=== PATIENT | female | born 2000 | race American Indian/Alaskan Native ===

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

== ENCOUNTER 2020-08-01 18:14 | Emergency (ER) | payer MEDICAID, SELFPAY ==
[2020-08-01 18:24] VITALS: BP 155/89; PULSE 109; RESP 20; TEMP 37; O2SAT 100
--- NOTE | 2020-08-01 19:07 | ED.EXTPRO ---
HPI - Extremity Problem General Chief complaint: Extremity Problem,Nontraumatic Stated complaint: RIGHT ARM SWELLING HURTS BAD Time Seen by Provider: 08/01/20 19:07 Source: patient and family Mode of arrival: Family Vehicle Limitations: no limitations History of Present Illness HPI Narrative: 20-year-old woman seen at [facility] about a month ago for an acute allergic reaction to amitriptyline. She had an IV in the left antecubital fossa. At IV site had some irritation around it that looks like sensitivity from the dressing or Band-Aid. Over the last 3-4 days there has been increasing redness around the IV site and over the last 24 hours there is significant erythema from the upper arm to the lower forearm centered around the antecubital fossa. There is no evidence of abscess or drainage. She does not note dramatic fevers or chills. She does note that for the past 3-4 days she has had a significant amount of itching and was diagnosed with scabies for which she used permethrin cream yesterday. She denies will work nausea, vomiting, diarrhea, abdominal pain, chest pain, dyspnea, palpitations or any acute neurologic changes. Related Data Previous Rx's Medication Instructions Recorded ondansetron 4 mg PO TID-QID PRN #10 tab 03/01/19 cephalexin 500 mg PO TID #21 cap 08/01/20 Allergies Allergy/AdvReac Type Severity Reaction Status Date / Time amitriptyline Allergy Severe Rash Verified 08/01/20 19:31 Review of Systems Review of Systems ROS Unobtainable: All systems reviewed & are unremarkable except as noted in HPI and below Patient History Social History Smoking Status: Never smoker Smoking Status: Never smoker alcohol intake frequency: holidays/special occasions only Substance Use Type: marijuana Exam Narrative Exam Narrative: General: Healthy appearing, in no acute distress. Able to give a complete and coherent history. Well-nourished well-developed HEENT: Moist mucous membranes, normal sclera with reactive pupils, Neck:supple Respiratory: Lungs are clear to auscultation, no wheezing no rales no rhonchi. Full and symmetrical air movement Cardiac: Regular rate and rhythm no murmurs no bruits Abdomen: Soft, nontender, good bowel tones, no flank pain Skin: Erythematous non petechial rash over much of her body with burrowing sites between her fingers more on the right than the left consistent with scabies. She has a rectangular shaped erythematous area in the antecubital fossa suspicious for an allergic reaction to a Band-Aid with a central amount of peeling skin which would have been the puncture site for the IV. She has increasing cellulitic erythema in the left arm to include the distal 2/3 of the medial arm and the proximal 2/3 of the medial forearm. There is no fluctuance or obvious abscess Neurologic: Grossly neurologically intact with no obvious asymmetries or abnormalities. Neurovascularly intact on the left side Extremities: well perfused, large bruised left thigh approximately 3 to 4-day-old and healing Psych: Cooperative, appropriate insight and affect Initial Vital Signs Initial Vital Signs: Vital Signs Temperature 98.6 F 08/01/20 18:24 Pulse Rate 109 H 08/01/20 18:24 Respiratory Rate 20 08/01/20 18:24 Blood Pressure 155/89 H 08/01/20 18:24 Pulse Oximetry 100 08/01/20 18:24 Course Orders Ordered: ED Orders 08/01/20 19:25 Complete Blood Count AUTO DIFF Stat Comprehensive Metabolic Panel Stat Lactate (Lactic Acid) Stat 08/01/20 19:50 Blood Culture Stat Discontinued Medications Hydroxyzine Pamoate (Hydroxyzine Pamoate 25 Mg Capsule) 50 mg PO NOW ONE Stop: 08/01/20 19:49 Last Admin: 08/01/20 19:57 Dose: 50 mg Documented by: JAMI Ceftriaxone Sodium/Dextrose (Rocephin) 2 gm in 50 mls @ 100 mls/hr IV NOW ONE Stop: 08/01/20 19:51 Last Infusion: 08/01/20 20:15 Dose: 0 mls/hr Documented by: Admin: 08/01/20 19:36 Dose: 100 mls/hr Documented by: JAMI Sodium Chloride (Normal Saline 0.9%) 1,000 mls @ 1,000 mls/hr IV BOLUS ONE Stop: 08/01/20 20:21 Last Infusion: 08/01/20 21:11 Dose: 0 mls/hr Documented by: Admin: 08/01/20 19:37 Dose: 1,000 mls/hr Documented by: JAMI Ketorolac Tromethamine (Ketorolac 60 Mg/2 Ml Vial) 15 mg IV NOW ONE Stop: 08/01/20 19:49 Last Admin: 08/01/20 19:57 Dose: 15 mg Documented by: JAMI Vital Signs Vital signs: Vital Signs - 8 hr 08/01/20 18:24 Temperature 98.6 F Pulse Rate 109 H Respiratory Rate 20 Blood Pressure 155/89 H Pulse Oximetry 100 MDM - Extremity (Nontraumatic) Lab Data Result diagrams: 08/01/20 19:25 08/01/20 19:25 Labs: Lab Results 08/01/20 08/01/20 08/01/20 Range/Units 19:25 19:25 19:25 WBC 10.4 (4.5-11.0) X10^3/uL RBC 4.47 (4.0-5.2) X10^6/uL Hgb 13.6 (12.0-16.0) g/dL Hct 40.2 (36-46) % MCV 89.9 (80-100) fL MCH 30.4 (26-34) PG MCHC 33.8 (30-36) % RDW 13.1 (11.6-14.8) % Plt Count 287 (150-400) X10^3/uL Neut % (Auto) 51.8 (50-75) % Lymph % (Auto) 30.3 (25-40) % [place] % (Auto) 7.9 (3-14) % Eos % (Auto) 9.7 H (2-4) % Baso % (Auto) 0.3 (0-2) % Neut # (Auto) 5400 (5570-5325) /uL Lymph # (Auto) 3100 (5547-8922) /uL [place] # (Auto) 800 (0-900) /uL Eos # (Auto) 1000 H (0-450) /uL Baso # (Auto) 0 (0-100) /uL Sodium 138 (137-145) mmol/L Potassium 3.7 (3.4-5.1) mmol/L Chloride 105 (98-107) mmol/L Carbon Dioxide 27 (22-32) mmol/L BUN 11 (7-17) mg/dL Creatinine 0.56 (0.52-1.04) mg/dL Estimated GFR > 60.0 (>60) mL/min BUN/Creatinine Ratio 19.6 (6-22) Glucose 81 (70-100) mg/dL Lactate 0.7 (0.7-2.1) mmol/L Calcium 9.2 (8.4-10.2) mg/dL Total Bilirubin 0.3 (0.2-1.3) mg/dL AST 21 (14-36) IU/L ALT 11 (<35) IU/L Alkaline Phosphatase 55 (38-126) U/L Total Protein 6.7 (6.3-8.2) g/dL Albumin 4.2 (3.5-5.0) g/dL Globulin 2.5 (1.7-4.1) g/dL Albumin/Globulin Ratio 1.7 (1.0-2.8) MDM Narrative Medical decision making narrative: 20-year-old woman presents with redness left forearm around antecubital fossa with a history of a an IV at that side approximately a month ago. It does appear to be cellulitis with no abscess appreciated. No signs of sepsis or overwhelming infection. She is treated with ceftriaxone in the emergency department with some improvement. She will need to complete 7 additional days of Keflex and prescription is given. She was recently diagnosed with scabies and has treated herself twice with permethrin as well as cleaned all of her clothes. They were not given any additional information regarding scabies so this is printed out for them today. She is safe for home discharge Discharge Plan Departure Patient Disposition: Home Clinical Impression: Cellulitis Qualifiers: Site of cellulitis: extremity Site of cellulitis of extremity: upper extremity Laterality: left Qualified Code(s): L03.114 - Cellulitis of left upper limb Instructions: DI for Cellulitis -- Adult, DI for Scabies Activity Restrictions/Additional Instructions: Thank you for coming in today You have a cellulitis developing in the left arm. You got started on antibiotics in the emergency department and need to complete 7 more days of Keflex/cephalexin. If this seems that it is getting worse, please return to the ER. It is okay to leave the arm uncovered and you do not need to use any creams at the area in the crease of the elbow I have included some printed instructions for scabies. It sounds like you have already done all that needs to be done to treat this. Regarding the bruising on the leg, you clearly simply ran into something hard enough to leave such a bruise. You the remainder of your blood work is reassuring and you do not have any signs of anemia today. Prescriptions: New cephalexin 500 mg capsule 500 mg PO TID Qty: 21 RF: 0 No Action ondansetron 4 mg tablet,disintegrating 4 mg PO TID-QID PRN (Reason: nausea and vomiting) Qty: 10 RF: 0
[2020-08-01 19:35] LABS: Add Manual Diff / Slide Review NO; Basophils Absolute Auto 0 /uL (0-100); Basophils Percent Auto 0.3 % (0-2); Eosinophils Absolute Auto 1000 /uL (0-450); Eosinophils Percent Auto 9.7 % (2-4); Hematocrit 40.2 % (36-46); Hemoglobin 13.6 g/dL (12.0-16.0); Lymphocytes Absolute Auto 3100 /uL (1100-4500); Lymphocytes Percent Auto 30.3 % (25-40); Mean Corpuscular HGB Conc 33.8 % (30-36); Mean Corpuscular Hemoglobin 30.4 PG (26-34); Mean Corpuscular Volume 89.9 fL (80-100); Monocytes Absolute Auto 800 /uL (0-900); Monocytes Percent Auto 7.9 % (3-14); Neutrophils Absolute Auto 5400 /uL (1500-7000); Neutrophils Percent Auto 51.8 % (50-75); Platelet Count 287 X10^3/uL (150-400); Red Blood Cell Count 4.47 X10^6/uL (4.0-5.2); Red Cell Distribution Width 13.1 % (11.6-14.8); White Blood Cell Count 10.4 X10^3/uL (4.5-11.0)
[2020-08-01] MEDS: CEFTRIAXONE 2 GM/50 ML FROZ.PIGGY IV (19:36)
[2020-08-01] MEDS: SODIUM CHLORIDE 0.9% 1,000 ML 1000 ML IV (19:37)
[2020-08-01 19:49] LABS: Lactate (Lactic Acid) 0.7 mmol/L (0.7-2.1)
[2020-08-01 19:50] LABS: Alanine Aminotransferase 11 IU/L (<35); Albumin 4.2 g/dL (3.5-5.0); Albumin Globulin Ratio 1.7 (1.0-2.8); Alkaline Phosphatase 55 U/L (38-126); Aspartate Aminotransferase 21 IU/L (14-36); BUN Creatinine Ratio 19.6 (6-22); Bilirubin Total 0.3 mg/dL (0.2-1.3); Blood Urea Nitrogen 11 mg/dL (7-17); Calcium 9.2 mg/dL (8.4-10.2); Carbon Dioxide 27 mmol/L (22-32); Chloride 105 mmol/L (98-107); Estimated Glomerular Filt Rate > 60.0 mL/min (>60); Globulin 2.5 g/dL (1.7-4.1); Glucose 81 mg/dL (70-100); HEMOLYSIS < 15 (0-50); Potassium 3.7 mmol/L (3.4-5.1); Sodium 138 mmol/L (137-145); Total Protein 6.7 g/dL (6.3-8.2)
[2020-08-01] MEDS: KETOROLAC 60 MG/2 ML VIAL 15 MG IV (19:57)
[2020-08-01] MEDS: hydrOXYzine pamoate 25 MG CAPSULE 50 MG PO (19:57)
[2020-08-01 21:57] VITALS: BP 102/97; PULSE 102; RESP 12; O2SAT 97
== END 2020-08-01 21:58 | disposition home or self-care (01) ==
PROVIDERS: Emergency Provider Emergency Medicine
DX: L03.114 Cellulitis of left upper limb (principal)
CPT/HCPCS: 36415; 80053; 83605; 85025; 87040; 96361; 96365; 96375; 99281; 99284; J0696; J1885

== ENCOUNTER 2020-09-13 19:59 | Emergency (ER) | payer MEDICAID, SELFPAY ==
[2020-09-13 20:09] VITALS: BP 133/89; PULSE 80; RESP 20; TEMP 37.4; O2SAT 98; BMI 19.7
--- NOTE | 2020-09-13 20:18 | ED.NAVMDI ---
HPI - Nausea/Vomiting/Diarrhea General Chief complaint: Nausea/Vomiting/Diarrhea Stated complaint: stomach problems Time Seen by Provider: 09/13/20 20:17 Source: patient Mode of arrival: Ambulatory Limitations: no limitations History of Present Illness HPI Narrative: 20-year-old otherwise healthy young woman presents after a night of heavy alcohol excess with her friends. She finds that she has been throwing up all of today, is still quite dizzy when standing up and has not been able to keep any liquids down at all today. She describes no chest pain other than esophageal pain from all of the vomiting, no palpitations, no dyspnea, mild epigastric tenderness without diarrhea and no other neurologic complaints. Related Data Previous Rx's Medication Instructions Recorded ondansetron 4 mg PO TID-QID PRN #10 tab 03/01/19 cephalexin 500 mg PO TID #21 cap 08/01/20 Allergies Allergy/AdvReac Type Severity Reaction Status Date / Time amitriptyline Allergy Severe Rash Verified 08/01/20 19:31 Review of Systems Review of Systems Narrative: Remainder of complete review of systems is otherwise unremarkable except for that included in the HPI. Patient History Social History Smoking Status: Never smoker Smoking Status: Never smoker alcohol intake frequency: holidays/special occasions only Substance Use Type: marijuana Exam Narrative Exam Narrative: General: Slightly pale but otherwise Healthy appearing, in no acute distress. Able to give a complete and coherent history. Well-nourished well-developed HEENT: Moist mucous membranes, normal sclera with reactive pupils, Respiratory: Lungs are clear to auscultation, no wheezing no rales no rhonchi. Full and symmetrical air movement Cardiac: Regular rate and rhythm no murmurs no bruits Abdomen: Soft, mild tenderness in the epigastrium without rebound or guarding, good bowel tones, no flank pain Skin: Warm and dry, no rashes Neurologic: Grossly neurologically intact with no obvious asymmetries or abnormalities Extremities: No trauma, Psych: Cooperative, appropriate insight and affect Initial Vital Signs Initial Vital Signs: Vital Signs Temperature 99.3 F 09/13/20 20:09 Pulse Rate 80 09/13/20 20:09 Respiratory Rate 20 09/13/20 20:09 Blood Pressure 133/89 09/13/20 20:09 Pulse Oximetry 98 09/13/20 20:09 Course Orders Ordered: ED Orders 09/13/20 20:40 Complete Blood Count AUTO DIFF Stat Comprehensive Metabolic Panel Stat Discontinued Medications Sodium Chloride (Normal Saline 0.9%) 1,000 mls @ 1,000 mls/hr IV BOLUS ONE Stop: 09/13/20 21:22 Last Admin: 09/13/20 20:41 Dose: 1,000 mls/hr Documented by: LATONIA Ondansetron HCl (Ondansetron 4 Mg/2 Ml Inj) 4 mg IV NOW ONE Stop: 09/13/20 20:24 Last Admin: 09/13/20 20:41 Dose: 4 mg Documented by: LATONIA Vital Signs Vital signs: Vital Signs - 8 hr 09/13/20 20:09 Temperature 99.3 F Pulse Rate 80 Respiratory Rate 20 Blood Pressure 133/89 Pulse Oximetry 98 MDM - Nausea/Vomiting/Diarrhea Medical Records Attestation: I reviewed the patient's medical records. Lab Data Attestation: I reviewed the patient's lab results. Result diagrams: 09/13/20 20:40 09/13/20 20:40 Labs: Lab Results 09/13/20 09/13/20 Range/Units 20:40 20:40 WBC 8.9 (4.5-11.0) X10^3/uL RBC 4.64 (4.0-5.2) X10^6/uL Hgb 14.6 (12.0-16.0) g/dL Hct 42.0 (36-46) % MCV 90.6 (80-100) fL MCH 31.4 (26-34) PG MCHC 34.7 (30-36) % RDW 13.1 (11.6-14.8) % Plt Count 334 (150-400) X10^3/uL Neut % (Auto) 61.3 (50-75) % Lymph % (Auto) 26.1 (25-40) % [place] % (Auto) 10.7 (3-14) % Eos % (Auto) 1.5 L (2-4) % Baso % (Auto) 0.4 (0-2) % Neut # (Auto) 5500 (3742-0311) /uL Lymph # (Auto) 2300 (6482-9547) /uL [place] # (Auto) 1000 H (0-900) /uL Eos # (Auto) 100 (0-450) /uL Baso # (Auto) 0 (0-100) /uL Sodium 136 L (137-145) mmol/L Potassium 3.4 (3.4-5.1) mmol/L Chloride 104 (98-107) mmol/L Carbon Dioxide 23 (22-32) mmol/L BUN 9 (7-17) mg/dL Creatinine 0.46 L (0.52-1.04) mg/dL Estimated GFR > 60.0 (>60) mL/min BUN/Creatinine Ratio 19.6 (6-22) Glucose 92 (70-100) mg/dL Calcium 9.9 (8.4-10.2) mg/dL Total Bilirubin 0.7 (0.2-1.3) mg/dL AST 24 (14-36) IU/L ALT 16 (<35) IU/L Alkaline Phosphatase 77 (38-126) U/L Total Protein 7.6 (6.3-8.2) g/dL Albumin 4.6 (3.5-5.0) g/dL Globulin 3.0 (1.7-4.1) g/dL Albumin/Globulin Ratio 1.5 (1.0-2.8) MDM Narrative Medical decision making narrative: 20-year-old woman with heavy drinking last night which is apparently quite unusual for her. She has been vomiting all day and continuing to feel worse with persistent vomiting. She is given a L of fluid a total of 8 mg of Zofran a bit of reassurance and a recommendation to avoid quite some much alcohol at one setting. We did discuss alcohol use disorder and risks for that. She is safe for home discharge Discharge Plan Departure Prescriptions: No Action ondansetron 4 mg tablet,disintegrating 4 mg PO TID-QID PRN (Reason: nausea and vomiting) Qty: 10 RF: 0 cephalexin 500 mg capsule 500 mg PO TID Qty: 21 RF: 0
[2020-09-13] MEDS: SODIUM CHLORIDE 0.9% 1,000 ML 1000 ML IV (20:41)
[2020-09-13] MEDS: ONDANSETRON 4 MG/2 ML INJ IV ×2 (20:41→21:54)
[2020-09-13 20:54] LABS: Add Manual Diff / Slide Review NO; Basophils Absolute Auto 0 /uL (0-100); Basophils Percent Auto 0.4 % (0-2); Eosinophils Absolute Auto 100 /uL (0-450); Eosinophils Percent Auto 1.5 % (2-4); Hemoglobin 14.6 g/dL (12.0-16.0); Lymphocytes Absolute Auto 2300 /uL (1100-4500); Lymphocytes Percent Auto 26.1 % (25-40); Mean Corpuscular HGB Conc 34.7 % (30-36); Mean Corpuscular Hemoglobin 31.4 PG (26-34); Mean Corpuscular Volume 90.6 fL (80-100); Monocytes Absolute Auto 1000 /uL (0-900); Monocytes Percent Auto 10.7 % (3-14); Neutrophils Absolute Auto 5500 /uL (1500-7000); Neutrophils Percent Auto 61.3 % (50-75); Platelet Count 334 X10^3/uL (150-400); Red Blood Cell Count 4.64 X10^6/uL (4.0-5.2); Red Cell Distribution Width 13.1 % (11.6-14.8); White Blood Cell Count 8.9 X10^3/uL (4.5-11.0)
[2020-09-13 20:58] LABS: Alanine Aminotransferase 16 IU/L (<35); Albumin 4.6 g/dL (3.5-5.0); Albumin Globulin Ratio 1.5 (1.0-2.8); Alkaline Phosphatase 77 U/L (38-126); Aspartate Aminotransferase 24 IU/L (14-36); BUN Creatinine Ratio 19.6 (6-22); Bilirubin Total 0.7 mg/dL (0.2-1.3); Blood Urea Nitrogen 9 mg/dL (7-17); Calcium 9.9 mg/dL (8.4-10.2); Carbon Dioxide 23 mmol/L (22-32); Chloride 104 mmol/L (98-107); Estimated Glomerular Filt Rate > 60.0 mL/min (>60); Glucose 92 mg/dL (70-100); HEMOLYSIS < 15 (0-50); Potassium 3.4 mmol/L (3.4-5.1); Sodium 136 mmol/L (137-145); Total Protein 7.6 g/dL (6.3-8.2)
[2020-09-13 22:02] VITALS: BP 114/75; PULSE 91; RESP 18; TEMP 36.9; O2SAT 95
== END 2020-09-13 22:03 | disposition home or self-care (01) ==
PROVIDERS: Emergency Provider Emergency Medicine
DX: E86.0 Dehydration (principal); T51.91XA Toxic effect of unspecified alcohol, accidental (unintentional), initial encounter; R11.2 Nausea with vomiting, unspecified
CPT/HCPCS: 36415; 80053; 85025; 96361; 96374; 96376; 99284; J2405

== ENCOUNTER 2020-12-04 11:08 | Emergency (ER) | payer MEDICAID, SELFPAY ==
[2020-12-04 11:19] VITALS: BP 108/73; PULSE 78; RESP 18; TEMP 36.6; O2SAT 98; BMI 19.7
--- NOTE | 2020-12-04 11:50 | ED.GENADULT ---
HPI - General Adult General Chief complaint: Abdominal Pain Stated complaint: fatigue and abdominal pain for a week Time Seen by Provider: 12/04/20 11:23 Source: patient Mode of arrival: Ambulatory Limitations: no limitations History of Present Illness HPI narrative: Patient is a 20-year-old female who is here for evaluation of multiple symptoms to include back pain and headache and nausea and sore throat generalized fatigue. Symptoms have been going on for the past week. She contacted the clinic where she is seen yesterday. She had a rapid COVID test which she states was negative and she states she had blood work done but does not know the results of these test. She comes emergency department today because she continues to have the symptoms and because of the fatigue is having difficulty going to work because she is very tired. Related Data Previous Rx's Medication Instructions Recorded ondansetron 4 mg disintegrating 4 mg PO TID-QID PRN #10 tab 03/01/19 tablet cephalexin 500 mg capsule 500 mg PO TID #21 cap 08/01/20 Allergies Allergy/AdvReac Type Severity Reaction Status Date / Time amitriptyline Allergy Severe Rash Verified 08/01/20 19:31 Review of Systems Constitutional Constitutional: Reports fatigue, Denies fever(s), Reports lethargy and Reports malaise Cardiovascular Cardiovascular: Denies chest pain and Reports dyspnea Respiratory Respiratory: Denies cough and Reports dyspnea Gastrointestinal Gastrointestinal: Reports abdominal pain, Denies change in bowel habits, Reports nausea and Denies vomiting Genitourinary Genitourinary: Reports dysuria Musculoskeletal Musculoskeletal: Reports back pain Integumentary/Breasts Skin/Breast: Denies rash Neurologic Neurologic: Denies behavioral changes Psychiatric Psychiatric: Denies behavioral changes Endocrine Endocrine: Reports fatigue Hematologic/Lymphatic On Anticoagulants: No Allergic/Immunologic Allergic/Immunologic: Reports system reviewed and no additional complaints, except as documented Patient History Medical History Acetaminophen overdose Asthma exacerbation Rectal bleeding Social History Smoking Status: Never smoker Smoking Status: Never smoker alcohol intake frequency: holidays/special occasions only Substance Use Type: marijuana Exam Initial Vital Signs Initial Vital Signs: Vital Signs Temperature 97.8 F 12/04/20 11:19 Pulse Rate 78 12/04/20 11:19 Respiratory Rate 18 12/04/20 11:19 Blood Pressure 108/73 12/04/20 11:19 Pulse Oximetry 98 12/04/20 11:19 Const General: cooperative and healthy appearing [facility] Head: normal to inspection and normocephalic Mouth: oral mucosae normal and tongue normal Throat: other (Erythema around tonsils) Resp Auscultation: clear to auscultation bilaterally Cardio Rate: regular rate Rhythm: regular rhythm GI Inspection: normal to inspection Palpation: soft Skin General: no rashes or lesions noted Neuro General: patient alert, patient awake, patient oriented x3 and moves all extremities Extrem General: normal to inspection and capillary refill normal Psych Appearance: grossly normal and well kempt Course Orders Ordered: ED Orders 12/04/20 11:38 COVID19 -Nasal swab/Pre-Proc Stat Throat Culture Stat 12/04/20 12:25 Basic Metabolic Panel Stat Complete Blood Count AUTO DIFF Stat Vital Signs Vital signs: Vital Signs - 8 hr 12/04/20 11:19 Temperature 97.8 F Pulse Rate 78 Respiratory Rate 18 Blood Pressure 108/73 Pulse Oximetry 98 Medical Decision Making Lab Data Lab results reviewed: Yes I reviewed the patient's lab results. Result diagrams: 12/04/20 12:25 12/04/20 12:25 Labs: Lab Results 12/04/20 12/04/20 12/04/20 Range/Units 11:38 12:25 12:25 WBC 9.4 (4.5-11.0) X10^3/uL RBC 4.43 (4.0-5.2) X10^6/uL Hgb 13.5 (12.0-16.0) g/dL Hct 40.7 (36-46) % MCV 91.8 (80-100) fL MCH 30.5 (26-34) PG MCHC 33.3 (30-36) % RDW 12.5 (11.6-14.8) % Plt Count 280 (150-400) X10^3/uL Neut % (Auto) 59.9 (50-75) % Lymph % (Auto) 28.7 (25-40) % [place] % (Auto) 8.2 (3-14) % Eos % (Auto) 2.9 (2-4) % Baso % (Auto) 0.3 (0-2) % Neut # (Auto) 5600 (1758-8300) /uL Lymph # (Auto) 2700 (1172-0177) /uL [place] # (Auto) 800 (0-900) /uL Eos # (Auto) 300 (0-450) /uL Baso # (Auto) 0 (0-100) /uL Sodium 137 (137-145) mmol/L Potassium 3.7 (3.4-5.1) mmol/L Chloride 106 (98-107) mmol/L Carbon Dioxide 25 (22-32) mmol/L BUN 7 (7-17) mg/dL Creatinine 0.39 L (0.52-1.04) mg/dL Estimated GFR > 60.0 (>60) mL/min BUN/Creatinine Ratio 17.9 (6-22) Glucose 89 (70-100) mg/dL Calcium 9.1 (8.4-10.2) mg/dL SARS-CoV-2 (PCR) Negative (Negative) Point of Care Testing Test Results Negative Rapid Strep A Negative Urine Dip Bedside Urine Glucose Negative Bedside Urine Bilirubin - Negative Bedside Urine Ketone - Negative Urine Specific [place] 1.015 Bedside Urine Occult Blood - Negative Bedside Urine pH 6.5 Bedside Urine Protein - Negative Bedside Urine Urobilinogen - Negative Bedside Urine Nitrite - Negative Bedside Urine Leukocytes - Negative Esterase Point of care testing: Point of Care Testing Test Results Negative Rapid Strep A Negative Urine Dip Bedside Urine Glucose Negative Bedside Urine Bilirubin - Negative Bedside Urine Ketone - Negative Urine Specific [place] 1.015 Bedside Urine Occult Blood - Negative Bedside Urine pH 6.5 Bedside Urine Protein - Negative Bedside Urine Urobilinogen - Negative Bedside Urine Nitrite - Negative Bedside Urine Leukocytes - Negative Esterase [facility] Narrative Medical decision making narrative: Patient is nontoxic appearing. Her labs here in the emergency department are unremarkable. Unsure the exact etiology of her symptoms but I feel we can hold on further workup for now. She did take Tylenol for any headaches or body aches. She will contact her clinic for a follow-up. She was given return precautions. She expressed understanding and agreement. Discharge Plan Departure Patient Disposition: Home Clinical Impression: Headache, Sore throat Instructions: Sore Throat, DI for Headache Activity Restrictions/Additional Instructions: Your workup here in the emergency department to include your labs and other cultures are all unremarkable. There is a throat culture pending at the time your discharge we will contact you if this is positive and if we need to start on any antibiotics. Recommend that you contact your primary provider for follow-up. You can take Tylenol for any headaches or body aches. Prescriptions: No Action ondansetron 4 mg tablet,disintegrating 4 mg PO TID-QID PRN (Reason: nausea and vomiting) Qty: 10 RF: 0 cephalexin 500 mg capsule 500 mg PO TID Qty: 21 RF: 0 Referrals: Ирина Pickering PA-C [Primary Care Provider] -
[2020-12-04 11:54] VITALS: PULSE 75; O2SAT 97
[2020-12-04 12:09] VITALS: PULSE 75; O2SAT 100
[2020-12-04 12:10] VITALS: BP 107/76; PULSE 68; RESP 14; O2SAT 99
[2020-12-04 12:26] LABS: COVID19 -Nasal RAPID Negative (Negative)
[2020-12-04 12:36] LABS: Add Manual Diff / Slide Review NO; Basophils Absolute Auto 0 /uL (0-100); Basophils Percent Auto 0.3 % (0-2); Eosinophils Absolute Auto 300 /uL (0-450); Eosinophils Percent Auto 2.9 % (2-4); Hematocrit 40.7 % (36-46); Hemoglobin 13.5 g/dL (12.0-16.0); Lymphocytes Absolute Auto 2700 /uL (1100-4500); Lymphocytes Percent Auto 28.7 % (25-40); Mean Corpuscular HGB Conc 33.3 % (30-36); Mean Corpuscular Hemoglobin 30.5 PG (26-34); Mean Corpuscular Volume 91.8 fL (80-100); Monocytes Absolute Auto 800 /uL (0-900); Monocytes Percent Auto 8.2 % (3-14); Neutrophils Absolute Auto 5600 /uL (1500-7000); Neutrophils Percent Auto 59.9 % (50-75); Platelet Count 280 X10^3/uL (150-400); Red Blood Cell Count 4.43 X10^6/uL (4.0-5.2); Red Cell Distribution Width 12.5 % (11.6-14.8); White Blood Cell Count 9.4 X10^3/uL (4.5-11.0)
[2020-12-04 13:01] LABS: BUN Creatinine Ratio 17.9 (6-22); Blood Urea Nitrogen 7 mg/dL (7-17); Calcium 9.1 mg/dL (8.4-10.2); Carbon Dioxide 25 mmol/L (22-32); Chloride 106 mmol/L (98-107); Estimated Glomerular Filt Rate > 60.0 mL/min (>60); Glucose 89 mg/dL (70-100); HEMOLYSIS < 15 (0-50); Potassium 3.7 mmol/L (3.4-5.1); Sodium 137 mmol/L (137-145)
== END 2020-12-04 13:19 | disposition home or self-care (01) ==
PROVIDERS: Emergency Provider Emergency Medicine; PCP Physician Assistant
DX: R51.9 Headache, unspecified (principal); J02.9 Acute pharyngitis, unspecified; R53.83 Other fatigue; R11.0 Nausea; Z20.822 Contact with and (suspected) exposure to COVID-19
CPT/HCPCS: 80048; 81003; 81025; 85025; 87070; 87635; 87880; 99283; C9803

== ENCOUNTER 2021-02-02 17:55 | Emergency (ER) | payer MEDICAID, SELFPAY ==
[2021-02-02 18:29] VITALS: BP 108/76; PULSE 98; RESP 14; TEMP 36.5; O2SAT 99; BMI 20.5
[2021-02-02 18:57] LABS: COVID19 -Nasal RAPID Negative (Negative)
[2021-02-02 19:30] VITALS: PULSE 86; RESP 15; O2SAT 99
--- NOTE | 2021-02-03 09:08 | ED_ITS ---
HPI - URI/Sore Throat <Sowmya Bermudez PA-C - Last Filed: 02/03/21 09:15> General Chief Complaint: Upper Respiratory Symptoms Stated Complaint: Really Dry Cold Time Seen by Provider: 02/02/21 19:02 Source: patient Mode of arrival: Ambulatory Limitations: no limitations History of Present Illness HPI Narrative: 20-year-old female with a history of asthma, prior suicide attempt presents to the ED with 10 days of cough. Patient states she had a URI, where she lost her voice 2 weeks ago, following which she started experiencing a dry cough. Patient states it is worse at night, interfering with her sleep. Patient denies fever, chills, chest pain, shortness of breath, nausea, vomiting, abdominal pain, dysuria, lightheadedness, dizziness, syncope. Patient endorses a history of asthma for which she takes a daily steroid inhaler. Denies using albuterol. Related Data Previous Rx's Medication Instructions Recorded ondansetron 4 mg disintegrating 4 mg PO TID-QID PRN #10 tab 03/01/19 tablet cephalexin 500 mg capsule 500 mg PO TID #21 cap 08/01/20 benzonatate 100 mg capsule 100 mg PO TID 7 Days #21 cap 02/02/21 (Nereyda Stoll) Allergies Allergy/AdvReac Type Severity Reaction Status Date / Time amitriptyline Allergy Severe Rash Verified 02/02/21 18:29 Review of Systems <Sowmya Bermudez PA-C - Last Filed: 02/03/21 09:15> Constitutional Constitutional: Denies chills, Denies fatigue, Denies fever(s), Denies frequent falls, Denies lethargy and Denies weakness Eyes Eyes: Denies change in vision, Denies eye discharge, Denies irritation and Denies loss of vision ENT Ears, Nose, Mouth, and Throat: Denies change in voice, Denies dizziness, Denies neck pain, Denies sore throat and Denies throat swelling Cardiovascular Cardiovascular: Denies chest pain, Denies irregular heart rhythm, Denies lightheadedness, Denies palpitations, Denies dyspnea, Denies dyspnea on exertion and Denies orthopnea Respiratory Respiratory: Reports cough, Denies dyspnea, Denies dyspnea on exertion and Denies wheezing Gastrointestinal Gastrointestinal: Denies abdominal pain, Denies change in bowel habits, Denies diarrhea, Denies nausea and Denies vomiting Musculoskeletal Musculoskeletal: Denies neck pain and Denies numbness Integumentary/Breasts Skin/Breast: Denies pruritus, Denies erythema, Denies rash and Denies wounds Neurologic Neurologic: Denies behavioral changes, Denies confusion, Denies dizziness, Denies frequent falls, Denies loss of vision, Denies numbness and Denies weakness Psychiatric Psychiatric: Denies anxiety, Denies behavioral changes, Denies confusion, Denies depression, Denies homicidal ideation and Denies suicidal ideation Endocrine Endocrine: Denies fatigue, Denies flushing and Denies palpitations Hematologic/Lymphatic Hematologic/Lymphatic: Denies easy bruising Allergic/Immunologic Allergic/Immunologic: Denies urticaria, Denies throat swelling and Denies wheezing Patient History <Sowmya Bermudez PA-C - Last Filed: 02/03/21 09:15> Medical History Acetaminophen overdose Asthma exacerbation Rectal bleeding Social History Smoking Status: Never smoker Smoking Status: Never smoker alcohol intake frequency: holidays/special occasions only Substance Use Type: marijuana Exam <Sowmya Bermudez PA-C - Last Filed: 02/03/21 09:15> Narrative Exam Narrative: Benign physical exam. Lungs clear Bilaterally,no wheezing, rales, rhonchi. Initial Vital Signs Initial Vital Signs: Vital Signs Temperature 97.7 F 02/02/21 18:29 Pulse Rate 98 H 02/02/21 18:29 Respiratory Rate 14 02/02/21 18:29 Blood Pressure 108/76 02/02/21 18:29 Pulse Oximetry 99 02/02/21 18:29 Const General: cooperative HENMT Head: normocephalic and atraumatic Ears: external ears normal and TM's normal bilaterally Nose: external nose normal and No nasal discharge Face and sinus: sinuses nontender, face symmetric, no sinus tenderness and No dry mucous membranes Mouth: oral mucosae normal and moist mucous membranes Teeth and gingiva: dentition normal Throat: tonsils normal and uvula midline Eyes General: appearance normal, both eyes and all related structures Eyelids: eyelids normal Conjunctivae: conjunctivae normal Sclera: sclerae normal Pupils: PERRL EOM: EOM intact bilaterally Neck Neck: normal visual inspection, trachea midline, No lymphadenopathy, No midline deformity and No JVD Lymphatic: No lymphedema Chest Chest: normal inspection of the chest Resp Effort & Inspection: normal respiratory effort, able to speak in complete sentences, no respiratory distress and no use of accessory muscles Auscultation: clear to auscultation bilaterally, no rales, no rhonchi and no wheezes Cardio Rate: regular rate Rhythm: regular rhythm Heart Sounds: no click, no gallops, no murmurs and no rubs Pulses: normal peripheral pulses GI Inspection: non-distended Palpation: soft, no hepatosplenomegaly, No guarding, No pulsatile mass and No tender Auscultation: normal bowel sounds Back/Spine/Pelvis Back: No CVA tenderness Cervical Spine: cervical ROM normal and No pain with cervical ROM Thoracic/Lumbar Spine: thoracic and lumbar spine normal to inspection Skin General: no rashes or lesions noted, No jaundice and No petechiae Neuro General: patient alert, patient oriented x3, gait normal and no focal motor de ficits Speech: speech normal Extrem General: full ROM, no clubbing, cyanosis or edema, no pedal edema and no calf tenderness Psych Appearance: well kempt Mental Status: mental status grossly normal Attitude: cooperative Thought Content: normal and suicidality Judgment: judgment good <Connor Vasquez MD - Last Filed: 02/08/21 11:00> Initial Vital Signs Initial Vital Signs: Vital Signs Temperature 97.7 F 02/02/21 18:29 Pulse Rate 98 H 02/02/21 18:29 Respiratory Rate 14 02/02/21 18:29 Blood Pressure 108/76 02/02/21 18:29 Pulse Oximetry 99 02/02/21 18:29 MDM - URI/Sore Throat <Sowmya Bermudez PA-C - Last Filed: 02/03/21 09:15> Medical Records Attestation: I reviewed the patient's medical records. Lab Data Attestation: I reviewed the patient's lab results. Lab results narrative: COVID-19 negative Labs: Lab Results 02/02/21 Range/Units 18:31 SARS-CoV-2 (PCR) Negative (Negative) [facility] Narrative Medical decision making narrative: 20-year-old female with a history of asthma, prior suicide attempt presents to the ED with 10 days of cough. consider acute bronchitis versus COVID-19 infection versus other viral syndrome. Will order COVID-19 test. No concern for pneumonia given benign physical exam, no systemic symptoms or signs. Likely discharge home with a prescription for Tessalon Perles, ED return precautions. <Connor Vasquez MD - Last Filed: 02/08/21 11:00> Lab Data Labs: Lab Results 02/02/21 Range/Units 18:31 SARS-CoV-2 (PCR) Negative (Negative) Discharge Plan Departure Patient Disposition: Home Clinical Impression: Cough Instructions: DI for Acute Bronchitis Activity Restrictions/Additional Instructions: You were evaluated in the ED today for a persistent, dry cough. Your lungs sounded clear, without wheezing it is. You do not have a fever and her vital signs are stable. You likely have bronchitis, which can occur after a viral infection such as laryngitis that you had 2 weeks ago. You can take Tessalon Perles, Delsym, Robitussin for the cough. Return to the ED if you experience chest pain, shortness of breath. Prescriptions: New benzonatate [Tessalon Perles] 100 mg capsule 100 mg PO TID 7 Days Qty: 21 RF: 0 No Action ondansetron 4 mg tablet,disintegrating 4 mg PO TID-QID PRN (Reason: nausea and vomiting) Qty: 10 RF: 0 cephalexin 500 mg capsule 500 mg PO TID Qty: 21 RF: 0 Referrals: Ирина Pickering PA-C [Primary Care Provider] - <Connor Vasquez MD - Last Filed: 02/08/21 11:00> Cosign ED Attending Ya Attestation: I was immediately available in the department for consultation. This documentation has been reviewed and I agree with assessment and plan. Supervised by Connor Vasquez MD
== END 2021-02-02 19:32 | disposition home or self-care (01) ==
PROVIDERS: Emergency Medicine; Emergency Provider Student in an Organized Health Care Education/Training Program; PCP Physician Assistant
DX: R05 Cough (principal); Z20.822 Contact with and (suspected) exposure to COVID-19
CPT/HCPCS: 87635; 99281; 99282; C9803

== ENCOUNTER 2021-02-07 14:51 | Emergency (ER) | payer MEDICAID, SELFPAY ==
[2021-02-07] VITALS (7 sets, daily range): BP systolic 94–102; BP diastolic 58–74; PULSE 73–90; RESP 18–20; TEMP 37.1; O2SAT 97–98; BMI 18.5
--- NOTE | 2021-02-07 15:10 | ED_ITS ---
HPI - Ear Problem <Lex Krishnamurthy PA-C - Last Filed: 02/07/21 16:01> General Chief complaint: Upper Respiratory Symptoms Stated complaint: Fevers Time Seen by Provider: 02/07/21 14:57 History of Present Illness HPI Narrative: Ann presents today with chief complaint of continued sinus infection, occasional cough, fever with T-max of 100? F that is responsive to Tylenol. She reports that she was seen a couple weeks ago and diagnosed with bronchitis but reports that she still has these symptoms. She has past medical history of asthma but has not needed to use her inhaler. She denies any significant chest pain, shortness of breath, headache sore throat, vision changes, abdominal pain, vomiting or any other acute concerns or complaints at this time. Related Data Previous Rx's Medication Instructions Recorded ondansetron 4 mg disintegrating 4 mg PO TID-QID PRN #10 tab 03/01/19 tablet cephalexin 500 mg capsule 500 mg PO TID #21 cap 08/01/20 benzonatate 100 mg capsule 100 mg PO TID 7 Days #21 cap 02/02/21 (Nereyda Stoll) Allergies Allergy/AdvReac Type Severity Reaction Status Date / Time amitriptyline Allergy Severe Rash Verified 02/02/21 18:29 Review of Systems <Lex Krishnamurthy PA-C - Last Filed: 02/07/21 16:01> Review of Systems Narrative: As per HPI Patient History <Lex Krisnhamurthy PA-C - Last Filed: 02/07/21 16:01> Medical History Acetaminophen overdose Asthma exacerbation Rectal bleeding Social History Smoking Status: Never smoker Smoking Status: Never smoker alcohol intake frequency: holidays/special occasions only Substance Use Type: marijuana Exam <Lex Krishnamurthy PA-C - Last Filed: 02/07/21 16:01> Narrative Exam Narrative: Const General: cooperative, healthy appearing, comfortable and no acute distress Nutritional Appearance: average body habitus and well nourished Orientation: alert and oriented x3 HENMT Head: normal to inspection and normocephalic Ears: hearing grossly normal bilaterally, external ears normal, TM's normal bilaterall y, EAC's normal, mastoids normal and no periauricular adenopathy Nose: external nose normal, nares normal and no nasal discharge Face and sinus: normal facial exam, sinuses nontender and face symmetric Mouth: oral mucosae normal, lip normal, tongue normal and moist mucous membranes Teeth and gingiva: dentition normal and gingiva normal Throat: posterior oropharynx normal, uvula midline, no postnasal drainage and no uvular edema Eyes periorbital findings normal, eyelids normal, conjunctivae normal Neck: normal visual inspection, full ROM, no lymphadenopathy, no meningeal signs and supple Resp normal respiratory effort, able to speak in complete sentences, not labored and no respiratory distress, clear to auscultation bilaterally, no crackles, no rales and no wheezes Cardio regular rate regular rhythm Heart Sounds: no gallops, no murmurs and no rubs Extrem normal to inspection, no pedal edema and no calf tenderness Neuro Alert and Oriented x3, normal gait, moves all extremities. Initial Vital Signs Initial Vital Signs: Vital Signs Pulse Rate 87 02/07/21 15:02 Pulse Oximetry 97 02/07/21 15:02 <DO Margarita Ramirez Last Filed: 02/07/21 16:17> Initial Vital Signs Initial Vital Signs: Vital Signs Pulse Rate 87 02/07/21 15:02 Pulse Oximetry 97 02/07/21 15:02 Course <Lex Krishnamurthy PA-C - Last Filed: 02/07/21 16:01> Orders Ordered: ED Orders 02/07/21 15:05 COVID19 -Nasal swab/Pre-Proc Stat Vital Signs Vital signs: Vital Signs - 8 hr 02/07/21 15:02 02/07/21 15:03 02/07/21 15:07 Temperature 98.7 F Pulse Rate 87 87 73 Respiratory Rate 18 Blood Pressure 102/59 L 102/59 L Pulse Oximetry 97 97 97 02/07/21 15:30 02/07/21 16:00 02/07/21 16:01 Temperature Pulse Rate 73 90 85 Respiratory Rate 20 Blood Pressure 94/60 95/74 Pulse Oximetry 98 97 97 02/07/21 16:10 Temperature Pulse Rate 90 Respiratory Rate 20 Blood Pressure 102/58 L Pulse Oximetry 98 <DO Margarita Ramirez Last Filed: 02/07/21 16:17> Orders Ordered: ED Orders 02/07/21 15:05 COVID19 -Nasal swab/Pre-Proc Stat Vital Signs Vital signs: Vital Signs - 8 hr 02/07/21 15:02 02/07/21 15:03 02/07/21 15:07 Temperature 98.7 F Pulse Rate 87 87 73 Respiratory Rate 18 Blood Pressure 102/59 L 102/59 L Pulse Oximetry 97 97 97 02/07/21 15:30 02/07/21 16:00 02/07/21 16:01 Temperature Pulse Rate 73 90 85 Respiratory Rate 20 Blood Pressure 94/60 95/74 Pulse Oximetry 98 97 97 02/07/21 16:10 Temperature Pulse Rate 90 Respiratory Rate 20 Blood Pressure 102/58 L Pulse Oximetry 98 Medical Decision Making <Lex Krishnamurthy PA-C - Last Filed: 02/07/21 16:01> Lab Data Labs: Lab Results 02/07/21 Range/Units 15:05 SARS-CoV-2 (PCR) Negative (Negative) MDM Narrative Medical decision making narrative: Patient is well-appearing at this time. She has reassuring vital signs, clear lung sounds to auscultation, he is afebrile without use of any antipyretics. She is experiencing sinus congestion and has history of seasonal allergies. She reports that she usually gets congested this time year. She has not been taking any medication for her allergies. Recommend that we do Flonase nasal spray and other allergy medications to help relieve symptoms. I do not think that antibiotics or further diagnostics are warranted at this time. ER return precautions were discussed with the patient. Patient verbalizes understanding and agrees to plan and has no further concerns at this time. Thank you A [id number] system was used with the dictation of this note. Please disregard any spelling or grammatical errors. <Reese Hair DO - Last Filed: 02/07/21 16:17> Lab Data Labs: Lab Results 02/07/21 Range/Units 15:05 SARS-CoV-2 (PCR) Negative (Negative) Discharge Plan Departure Patient Disposition: Home Clinical Impression: Upper respiratory infection Qualifiers: URI type: unspecified URI Qualified Code(s): J06.9 - Acute upper respiratory infection, unspecified Activity Restrictions/Additional Instructions: It was nice to meet you this afternoon. Please use Flonase nasal spray and do a trial of Zyrtec or other oral antihistamine. You can also try saline nasal rin ses. Please follow-up with your PCP if symptoms fail to improve as expected. Thank you Lex Krishnamurthy PA-C Prescriptions: No Action ondansetron 4 mg tablet,disintegrating 4 mg PO TID-QID PRN (Reason: nausea and vomiting) Qty: 10 RF: 0 cephalexin 500 mg capsule 500 mg PO TID Qty: 21 RF: 0 benzonatate [Tessalon Perles] 100 mg capsule 100 mg PO TID 7 Days Qty: 21 RF: 0 Referrals: Ирина Pickering PA-C [Primary Care Provider] - <Reese Hair, - Last Filed: 02/07/21 16:17> Cosign ED Attending Cosbharatature Attestation: Dr Hair Co-Sign Statement: I was available for consultation during this patient's emergency department visit. This chart is signed by myself for administrative purposes only. I did not have direct contact with this patient during this visit. They were seen independently by the APC.
[2021-02-07 15:25] LABS: COVID19 -Nasal RAPID Negative (Negative)
== END 2021-02-07 16:10 | disposition home or self-care (01) ==
PROVIDERS: Emergency Medicine; Emergency Provider Physician Assistant; PCP Physician Assistant
DX: J06.9 Acute upper respiratory infection, unspecified (principal); Z20.822 Contact with and (suspected) exposure to COVID-19
CPT/HCPCS: 87635; 99281; 99282; C9803

== ENCOUNTER → 2021-03-09 15:04 | Outpatient (CLI) | payer MEDICAID, SELFPAY ==
--- NOTE | 2021-03-09 | DI.RAD.S_ITS ---
PROCEDURE: XR CHEST 2V INDICATIONS: Cough TECHNIQUE: 2 views of the chest were acquired. COMPARISON: June 18, 2008. FINDINGS: Surgical changes and devices: None. Lungs and pleura: Lungs are clear. No pleural effusions or pneumothorax. Mediastinum: Mediastinal contours are normal. Heart size is normal. Bones and chest wall: No suspicious bony abnormalities. Soft tissues appear unremarkable. IMPRESSION: No acute cardiopulmonary abnormality. Dictated by: Mando Giraldo M.D. on 03/09/2021 at 15:35 Approved by: Mando Giraldo M.D. on 03/09/2021 at 15:37
== END ==
PROVIDERS: PCP Physician Assistant; Referring Provider Registered Nurse; Visit Provider Registered Nurse
DX: R05.2 Subacute cough (principal)
CPT/HCPCS: 71046

== ENCOUNTER 2022-04-12 19:03 | Emergency (ER) | payer MEDICAID, SELFPAY ==
[2022-04-12 19:45] VITALS: BP 114/80; PULSE 97; RESP 20; TEMP 37.4; O2SAT 98; BMI 22.6
[2022-04-12 21:06] LABS: Adenovirus Not Detected (Not Detect); Coronavirus 229E Not Detected (Not Detect); Coronavirus HKU1 Not Detected (Not Detect); Coronavirus NL 63 Not Detected (Not Detect); Coronavirus OC43 Not Detected (Not Detect); Human Metapneumovirus Not Detected (Not Detect); Human Rhinovirus/Enterovirus Detected (Not Detect); Influenza A Detected (Not Detect); Influenza B Not Detected (Not Detect); Parainfluenza Virus 1 Not Detected (Not Detect); Parainfluenza Virus 2 Not Detected (Not Detect); Parainfluenza Virus 3 Not Detected (Not Detect); Parainfluenza Virus 4 Not Detected (Not Detect); SARS- CoV-2 Not Detected (Not Detecte)
[2022-04-12 21:07] LABS: B. parapertussis Not Detected (Not Detecte); Bordetella pertussis Not Detected (Not Detecte); Chlamydophila pneumoniae Not Detected (Not Detect); Mycoplasma pneumoniae Not Detected (Not Detect); Respiratory Syncytial Virus Not Detected (Not Detect)
[2022-04-12 21:49] VITALS: BP 134/78; PULSE 95; RESP 18; TEMP 37.2; O2SAT 97
--- NOTE | 2022-04-12 22:22 | ED.URI ---
HPI - URI/Sore Throat General Chief Complaint: Upper Respiratory Symptoms Stated Complaint: Ill with cold/flu symptons t-7 Time Seen by Provider: 04/12/22 20:34 Source: patient Mode of arrival: Ambulatory History of Present Illness HPI Narrative: 21-year-old female nonsmoker with noncontributory medical history presents for evaluation of upper respiratory symptoms for least a week including mild headache, runny nose, nasal congestion, dry cough and sore throat along with body aches. She is had subjective fever as well. She denies any nausea or vomiting. She has no abdominal pain, chest pain or shortness of breath. Related Data Previous Rx's Medication Instructions Recorded ondansetron 4 mg disintegrating 4 mg PO TID-QID PRN nausea and 03/01/19 tablet vomiting #10 tabs cephalexin 500 mg capsule 500 mg PO TID #21 caps 08/01/20 benzonatate 200 mg capsule 200 mg PO BID PRN cough #20 caps 04/12/22 ondansetron 4 mg disintegrating 4 mg PO TID-QID PRN nausea and 04/12/22 tablet vomiting #10 tabs Allergies Allergy/AdvReac Type Severity Reaction Status Date / Time amitriptyline Allergy Severe Rash Verified 02/02/21 18:29 Review of Systems Review of Systems Narrative: GENERAL: See HPI HEENT: See HPI RESPIRATORY: See HPI CARDIOVASCULAR: Denies chest pain, palpitations, orthopnea, edema, GASTROINTESTINAL: Denies nausea, vomiting, abdominal pain, diarrhea, constipation, melena. : Denies dysuria, frequency, incontinence, hematuria, urinary retention. MUSCULOSKELETAL: denies weakness, joint pain, or bony pain SKIN: Denies rash, skin lesions, or other NEUROLOGIC: Denies weakness, headache, numbness, change in speech, confusion, seizures, incoordination. PSYCHIATRIC: No concerning psychosocial issues. 12 point review of systems is negative except for those stated above Patient History Medical History Acetaminophen overdose Asthma exacerbation Rectal bleeding Social History Smoking Status: Never smoker Smoking Status: Never smoker alcohol intake frequency: holidays/special occasions only Substance Use Type: marijuana Exam Narrative Exam Narrative: GENERAL: [21] year old patient appears stated age. Well-developed patient, in mild distress. HEAD: Atraumatic. Normocephalic. EYES: Pupils equal round and reactive. Extraocular motions intact. No scleral icterus. No injection or drainage. ENT: Nose without bleeding, purulent drainage. Throat without erythema, tonsillar hypertrophy or exudate. Airway patent. NECK: Trachea midline. Non tender CARDIOVASCULAR: Regular rate and rhythm without murmurs, gallops, or rubs. RESPIRATORY: Clear to auscultation. Breath sounds equal bilaterally. No wheezes, rales, or rhonchi. GASTROINTESTINAL: Abdomen soft, non-tender, nondistended. EXTREMITIES: No edema or joint tenderness. BACK: Nontender without deformity or crepitance. No flank tenderness. NEURO: AOx3. SKIN: No rash or erythema of visible areas Initial Vital Signs Initial Vital Signs: Vital Signs Temperature 99.3 F 04/12/22 19:45 Pulse Rate 97 H 04/12/22 19:45 Respiratory Rate 20 04/12/22 19:45 Blood Pressure 114/80 04/12/22 19:45 Pulse Oximetry 98 04/12/22 19:45 Oxygen Delivery Method 04/12/22 19:45 Course Orders Ordered: Discontinued Medications Ondansetron HCl (Ondansetron 4 Mg Odt Prepack) 1 bottle MISC SEEINSTR ONE Stop: 04/12/22 22:53 Last Admin: 04/12/22 23:12 Dose: 1 bottle Documented By: ANNIE Vital Signs Vital signs: Vital Signs - 8 hr 04/12/22 23:12 Pulse Rate 104 H Respiratory Rate 18 Blood Pressure 124/63 Pulse Oximetry 98 Oxygen Delivery Method Room Air MDM - URI/Sore Throat Lab Data Labs: Lab Results 04/12/22 Range/Units 19:58 Chlamy pneumoniae PCR Not detected (Not Detect) Adenovirus (PCR) Not detected (Not Detect) B. pertussis DNA (PCR) Not detected (Not Detecte) B.parapertussis DNA PCR Not detected (Not Detecte) Coronavirus OC43 (PCR) Not detected (Not Detect) Coronavirus HKU1 (PCR) Not detected (Not Detect) Coronavirus 229E (PCR) Not detected (Not Detect) SARS-CoV-2 (PCR) Not detected (Not Detecte) Coronavirus NL63 (PCR) Not detected (Not Detect) Human Metapneumovir PCR Not detected (Not Detect) Influenza Type A (PCR) Detected H (Not Detect) Influenza Type B (PCR) Not detected (Not Detect) M. pneumoniae (PCR) Not detected (Not Detect) Parainfluenza 1 (PCR) Not detected (Not Detect) Parainfluenza 2 (PCR) Not detected (Not Detect) Parainfluenza 3 (PCR) Not detected (Not Detect) Parainfluenza 4 (PCR) Not detected (Not Detect) RSV (PCR) Not detected (Not Detect) Entero/Rhino (PCR) Detected H (Not Detect) Discharge Plan Departure Patient Disposition: Home Clinical Impression: Influenza A Instructions: DI for Influenza -- Adult Activity Restrictions/Additional Instructions: *You have been diagnosed with [influenza a] *What to do: *Please continue to take your regular medications as directed. [x ] New medication prescriptions sent to your pharmacy: [[facility]] [ ] New medication written as a paper prescription [ ] No new medications given *Please follow up with your primary care provider in 2-3 days, call for an appointment. Let them know you were seen in the Emergency Department and that we ask that you be seen in follow up. We will electronically transmit a record of today's note if your PCP is in our system *Return to Emergency Department if you should have any new, worsening or concerning symptoms, such as [fever greater than 101 F, shaking chills, worsening pain, persistent vomiting or other bothersome symptoms] Prescriptions: New benzonatate 200 mg capsule 200 mg PO BID PRN (Reason: cough) Qty: 20 0RF ondansetron 4 mg tablet,disintegrating 4 mg PO TID-QID PRN (Reason: nausea and vomiting) Qty: 10 0RF No Action ondansetron 4 mg tablet,disintegrating 4 mg PO TID-QID PRN (Reason: nausea and vomiting) Qty: 10 0RF cephalexin 500 mg capsule 500 mg PO TID Qty: 21 0RF Referrals: Ирина Pickering PA-C [Primary Care Provider] - Visit Report Forms: Patient Portal/API
[2022-04-12 23:12] VITALS: BP 124/63; PULSE 104; RESP 18; O2SAT 98
[2022-04-12] MEDS: ONDANSETRON 4 MG ODT PREPACK 1 BOTTLE MISC (23:12)
== END 2022-04-12 23:15 | disposition home or self-care (01) ==
PROVIDERS: Emergency Provider Emergency Medicine; PCP Physician Assistant
DX: J10.1 Influenza due to other identified influenza virus with other respiratory manifestations (principal); Z20.822 Contact with and (suspected) exposure to COVID-19
CPT/HCPCS: 87633; 99281; 99282

== ENCOUNTER → 2022-06-23 08:52 | Outpatient (CLI) | payer MEDICAID, SELFPAY ==
--- NOTE | 2022-06-23 | DI.US.S_ITS ---
PROCEDURE: US PELVIC COMPLETE INDICATIONS: Excessive and frequent menstruation TECHNIQUE: Real-time scanning was performed of the pelvic organs, with image documentation. Additional endovaginal scanning was necessary due to incomplete visualization of the adnexal and endometrial structures by transabdominal scanning. COMPARISON: None. FINDINGS: Uterus: Uterus is anteverted and normal in size at 6.8 x 2.8 x 3.8 cm. The myometrium is homogeneous. The endometrium measures 4 mm combined thickness. Ovaries: The right ovary measures 3.0 x 1.6 x 1.8 cm, with a calculated ovarian volume of 4.5 cc. The left ovary measures 3.0 x 1.1 x 1.8 cm, with a calculated ovarian volume of 3.1 cc. The ovaries have a normal sonographic appearance. Less than 12 follicles can be seen in each ovary. No adnexal masses are seen. Other: No pathologic free abdominal or pelvic fluid. Mild debris is visualized within the dependent bladder. IMPRESSION: Uterus and ovaries are unremarkable. Mild debris is noted within the bladder overall nonspecific. Recommend correlation potential cystitis. We strive to produce accurate, complete, and clear reports of imaging services. To assist us in improving patient care, this report was composed using standard report templates and voice recognition software. Therefore, it may contain abnormal punctuation, insertions and/or omissions. Occasional wrong-word or sound-alike substitutions may occur. Though we review the report and make efforts to correct it, we do recommend that the report be read carefully in proper context to recognize any text inaccuracies. Dictated by: Ursula Pritchard M.D. on 06/23/2022 at 16:34 Approved by: Ursula Pritchard M.D. on 06/23/2022 at 16:36
== END ==
PROVIDERS: PCP Physician Assistant; Referring Provider Registered Nurse; Visit Provider Registered Nurse
DX: N92.1 Excessive and frequent menstruation with irregular cycle (principal)
CPT/HCPCS: 76830; 76856

== ENCOUNTER 2022-11-06 11:24 | Emergency (ER) | payer MEDICAID, SELFPAY ==
[2022-11-06 11:26] VITALS: BP 126/86; PULSE 96; RESP 16; TEMP 36.3; O2SAT 97; BMI 21.4
--- NOTE | 2022-11-06 13:14 | PC.NURSE ---
pt is holding a baby and bottle feeding them in the waiting area during a patient check. no weakness noted.
--- NOTE | 2022-11-06 14:08 | ED.EXTPRO ---
HPI - Extremity Problem General Chief complaint: Extremity Problem,Nontraumatic Stated complaint: numbness on lf side of body Time Seen by Provider: 11/06/22 14:07 Related Data Previous Rx's Medication Instructions Recorded ondansetron 4 mg disintegrating 4 mg PO TID-QID PRN nausea and 03/01/19 tablet vomiting #10 tabs cephalexin 500 mg capsule 500 mg PO TID #21 caps 08/01/20 benzonatate 200 mg capsule 200 mg PO BID PRN cough #20 caps 04/12/22 ondansetron 4 mg disintegrating 4 mg PO TID-QID PRN nausea and 04/12/22 tablet vomiting #10 tabs Allergies Allergy/AdvReac Type Severity Reaction Status Date / Time amitriptyline Allergy Severe Rash Verified 02/02/21 18:29 Patient History Medical History Acetaminophen overdose Asthma exacerbation Rectal bleeding Social History Smoking Status: Never smoker Smoking Status: Never smoker alcohol intake frequency: holidays/special occasions only Substance Use Type: marijuana Exam Initial Vital Signs Initial Vital Signs: Vital Signs Temperature 97.4 F L 11/06/22 11:26 Pulse Rate 96 H 11/06/22 11:26 Respiratory Rate 16 11/06/22 11:26 Blood Pressure 126/86 11/06/22 11:26 Pulse Oximetry 97 11/06/22 11:26 Oxygen Delivery Method Room Air 11/06/22 11:26 Course Vital Signs Vital signs: Vital Signs - 8 hr 11/06/22 11:26 Temperature 97.4 F L Pulse Rate 96 H Respiratory Rate 16 Blood Pressure 126/86 Pulse Oximetry 97 Oxygen Delivery Method Room Air Discharge Plan Departure Prescriptions: No Action benzonatate 200 mg capsule 200 mg PO BID PRN (Reason: cough) Qty: 20 0RF ondansetron 4 mg tablet,disintegrating 4 mg PO TID-QID PRN (Reason: nausea and vomiting) Qty: 10 0RF ondansetron 4 mg tablet,disintegrating 4 mg PO TID-QID PRN (Reason: nausea and vomiting) Qty: 10 0RF cephalexin 500 mg capsule 500 mg PO TID Qty: 21 0RF Referrals: Ирина Pickering PA-C [Primary Care Provider] -
== END 2022-11-06 14:11 | disposition left against medical advice (07) ==
PROVIDERS: Emergency Provider Emergency Medicine; PCP Physician Assistant
DX: R20.0 Anesthesia of skin (principal)
CPT/HCPCS: 99281

== ENCOUNTER 2022-12-04 11:14 | Day surgery (SDC) | payer MEDICAID, SELFPAY ==
[2022-12-04] VITALS (16 sets, daily range): BP systolic 99–130; BP diastolic 52–76; PULSE 61–110; RESP 12–18; TEMP 36.2–37.1; O2SAT 94–100; BMI 23.1
--- NOTE | 2022-12-04 | PATH_ITS ---
[facility] Accession Number: [id number] No. of containers..01 Tissue . 01 Material submitted: . UTERINE - UTERINE CONTENTS . 01 Diagnosis: Uterine Contents: Immature chorionic villi with hydropic degeneration, decidual tissues and gestational endometrium (products of conception). Negative for gestational trophoblastic disease. MRV 12/10/2022 1600 Local . 01 Electronically signed: . Yessy Lai MD, Pathologist NPI- [id number] . 01 Gross description: . UTERINE CONTENTS: Received in formalin are minute fragments of mucoid and hemorrhagic material measuring 2.5 x 2.5 x 0.4 cm in aggregate. Submitted in toto in 2 cassettes. /JOJO 12/08/2022 2325 Local . 01 Pathologist provided ICD-10: O03.9 . 01 CPT . 542002 Specimen Comment: A courtesy copy of this report has been sent to [phone] Performed at: 01 [facility] [address] [place] [address] [address] [facility], [place], [place] [id number] MD Phil Coello MD Phone: [phone]
--- NOTE | 2022-12-04 11:56 | DI.US.S_ITS ---
PROCEDURE: US OB <= 14 WEEKS FETUS INDICATIONS: PAIN, BLEEDING OUTSIDE/PRIOR DATING DATA: Last menstrual period (LMP): October 21, 2022. LMP-based estimated date of delivery (MARY): July 28, 2023. First dating scan (date and location): December 04, 2022. Estimated date of delivery (MARY) from first dating scan: July 31, 2023. TECHNIQUE: Real-time scanning was performed of the fetus and maternal pelvic organs, with image documentation. Endovaginal scanning was also performed to better visualize the fetus and maternal ovaries. COMPARISON: None. FINDINGS: Embryo: Single intrauterine gestation identified low within the endometrial cavity. By crown-rump length measurement, this measures approximately 5 weeks and 6 days and estimated gestational age. There is a perigestational hemorrhage measuring 1.1 x 0.5 x 0.5 cm. Heart rate: No cardiac activity identified. Maternal organs: Ovaries demonstrate a 4.2 x 2.3 x 2.7 cm complex mass within the left ovary with minimal internal vascularity. No pathologic pelvic free fluid. IMPRESSION: Single intrauterine gestation with estimated sonographic gestational age of approximately 5 weeks and 6 days based off crown-rump length measurement. There is no detectable cardiac activity. There is also an associated perigestational hemorrhage and low implantation of the gestational sac. Findings may represent questionable spontaneous in progress. Recommend continued clinical surveillance and short interval follow-up imaging as needed. Nonspecific complex left ovarian/adnexal cyst measuring up to 4.2 cm in size. This may represent a corpus luteal cyst. Attention will be made on subsequent imaging. We strive to produce accurate, complete, and clear reports of imaging services. To assist us in improving patient care, this report was composed using standard report templates and voice recognition software. Therefore, it may contain abnormal punctuation, insertions and/or omissions. Occasional wrong-word or sound-alike substitutions may occur. Though we review the report and make efforts to correct it, we do recommend that the report be read carefully in proper context to recognize any text inaccuracies. Dictated by: Ryan Jones M.D. on 12/04/2022 at 12:15 Approved by: Ryan Jones M.D. on 12/04/2022 at 12:20
[2022-12-04 11:59] LABS: Appearance Urine UA CLEAR; Bilirubin Urine UA NEGATIVE (NEGATIVE); Color Urine UA YELLOW; Glucose Urine UA NEGATIVE (Negative); Ketones Urine UA NEGATIVE (NEGATIVE); Leukocyte Esterase Urine UA NEGATIVE (NEGATIVE); Nitrite Urine UA NEGATIVE (Negative); Occult Blood Urine UA 2+ (Negative); Protein Urine UA NEGATIVE (Negative); Urobilinogen Urine UA 0.2 E.U./dL (0.2)
[2022-12-04 12:08] LABS: Pregnancy Test Urine Positive (Negative)
[2022-12-04 12:09] LABS: Bacteria Urine None Seen; Culture Indicated Urine Cult Not Indicated; RBC Urine 0-1/HPF (0-5/HPF); Squamous Epithelial Cell Urine 5-10 /HPF (0-5/HPF); WBC Urine None Seen (0-5/HPF)
[2022-12-04 12:18] LABS: Add Manual Diff / Slide Review NO; Basophils Absolute Auto 0 /uL (0-100); Basophils Percent Auto 0.4 % (0-2); Eosinophils Absolute Auto 200 /uL (0-450); Eosinophils Percent Auto 1.8 % (2-4); Hematocrit 36.5 % (36-46); Hemoglobin 12.4 g/dL (12.0-16.0); Lymphocytes Absolute Auto 1600 /uL (1100-4500); Lymphocytes Percent Auto 16.9 % (25-40); Mean Corpuscular HGB Conc 33.9 % (30-36); Mean Corpuscular Hemoglobin 30.5 PG (26-34); Mean Corpuscular Volume 89.9 fL (80-100); Monocytes Absolute Auto 700 /uL (0-900); Monocytes Percent Auto 7.4 % (3-14); Neutrophils Absolute Auto 7100 /uL (1500-7000); Neutrophils Percent Auto 73.5 % (50-75); Platelet Count 424 X10^3/uL (150-400); Red Blood Cell Count 4.06 X10^6/uL (4.0-5.2); Red Cell Distribution Width 13.4 % (11.6-14.8); White Blood Cell Count 9.6 X10^3/uL (4.5-11.0)
[2022-12-04 12:28] LABS: Alanine Aminotransferase 14 IU/L (<35); Albumin 3.9 g/dL (3.5-5.0); Albumin Globulin Ratio 1.3 (1.0-2.8); Alkaline Phosphatase 74 U/L (38-126); Aspartate Aminotransferase 18 IU/L (14-36); Bilirubin Total 0.6 mg/dL (0.2-1.3); Blood Urea Nitrogen 6 mg/dL (7-17); Calcium 8.7 mg/dL (8.4-10.2); Carbon Dioxide 27 mmol/L (22-32); Chloride 104 mmol/L (98-107); Estimated Glomerular Filt Rate > 60 mL/min (>60); Globulin 2.9 g/dL (1.7-4.1); Glucose 89 mg/dL (70-100); HEMOLYSIS < 15 (0-50); Potassium 3.7 mmol/L (3.4-5.1); Sodium 136 mmol/L (137-145); Total Protein 6.8 g/dL (6.3-8.2)
[2022-12-04 13:09] LABS: HCG Quantitative /Beta subunit 3729.2 mIU/mL
--- NOTE | 2022-12-04 14:41 | ED_ITS ---
HPI - General Chief complaint: Abdominal Pain Stated complaint: ovarian cyst per [facility], pelvic pain Time Seen by Provider: 12/04/22 13:02 Source: patient Mode of arrival: Family Vehicle Limitations: no limitations History of Present Illness HPI Narrative: This is a 22-year-old female with complaint of vaginal bleeding starting November 20 which has been persistent. She states she was supposed to get her regular. At the beginning of the month that is typically 5 days it never stops she is continued to have bleeding and clotting that is gotten a little bit worse. She is had some persistent pelvic cramping more on the right. She has a known ovarian cyst which she states she is told she would go away. She does not know if it is a complex cyst or normal cyst. Patient states no fevers or chills, no vomiting. She has had nausea at nighttime. No chest pain or shortness of breath, no lightheadedness or passing out, no diarrhea constipation. No active dysuria urgency or frequency but sometimes when she gets up from urinating is uncomfortable. Patient has tried Tylenol and ibuprofen today without any improvement so she presents. She did see primary care this when image clinic was told to follow-up. She had Dr. Osuna has not seen OBGYN or gynecology. No daily medications. No prior surgeries. Allergic to amitriptyline. Related Data Allergies Allergy/AdvReac Type Severity Reaction Status Date / Time amitriptyline Allergy Severe Rash Verified 02/02/21 18:29 Review of Systems Review of Systems ROS Unobtainable: All systems reviewed & are unremarkable except as noted in HPI and below Exam Narrative Exam Narrative: GENERAL: Alert and oriented x three, female in mild distress. HEENT: Head normocephalic, atraumatic, EOMI, pupils reactive, face symmetric, moist mucous membranes NECK: Supple, full range of motion CARDIOVASCULAR: Regular rate and rhythm without murmurs, rubs or gallops. RESPIRATORY: Breath sounds equal bilaterally, no wheezes rales or rhonchi. ABDOMEN: Soft, mild lower pelvic tenderness. Normoactive bowel sounds all 4 quadrants. No guarding or rebound, rigidity, no mass : No CVA tenderness EXTREMITIES: Normal range of motion, no clubbing or edema. Neurovascularly intact NEUROLOGICAL: Cranial nerves II through XII grossly intact. Moving all extremities SKIN: Warm, dry, no petechiae, no rashes or lesions. Initial Vital Signs Initial Vital Signs: Vital Signs Temperature 98.7 F 12/04/22 11:44 Pulse Rate 85 12/04/22 11:44 Respiratory Rate 18 12/04/22 11:44 Blood Pressure 124/71 12/04/22 11:44 Pulse Oximetry 99 12/04/22 11:44 Oxygen Delivery Method Room Air 12/04/22 11:44 Course Orders Ordered: Discontinued Medications Acetaminophen (Acetaminophen 325 Mg Tablet) 650 mg PO NOW ONE Stop: 12/04/22 17:02 Hydrocodone Bitart/Acetaminophen (Hydrocodone/Acet 5/325 Tablet) 1 tab PO NOW ONE Stop: 12/04/22 14:42 Last Admin: 12/04/22 14:51 Dose: 1 tab Documented By: RL Albuterol (Albuterol 2.5 Mg/3 Ml Neb (Adult)) 2.5 mg INH NOW PRN PRN Reason: Coughing, Wheezing, Dyspnea Hydromorphone HCl (Hydromorphone 2 Mg Inj) 0 mg IV Q5MIN PRN PRN Reason: Pain, Mild (1-3) Hydromorphone HCl (Hydromorphone 2 Mg Inj) 0 mg IV Q5M PRN PRN Reason: Pain, Moderate (4-6) Sodium Chloride (Normal Saline 0.9%) 1,000 mls @ 100 mls/hr IV CONT HANH Last Infusion: 12/04/22 17:18 Dose: 100 mls/hr Documented By: Admin: 12/04/22 15:54 Dose: 100 mls/hr Documented By: RB Lactated Ringer's (Lactated Ringers) 1,000 mls @ 42 mls/hr IV CONT HANH Last Infusion: 12/04/22 17:28 Dose: 0 mls/hr Documented By: Admin: 12/04/22 16:42 Dose: 42 mls/hr Documented By: CG Lactated Ringer's (Lactated Ringers) 1,000 mls @ 100 mls/hr IV CONT HANH Ondansetron HCl (Ondansetron 4 Mg/2 Ml Inj) 4 mg IV NOW PRN PRN Reason: Nausea And Vomiting Last Admin: 12/04/22 17:33 Dose: 4 mg Documented By: CG Oxycodone HCl (Oxycodone Ir 5 Mg Tablet) 5 mg PO PACUNOW PRN PRN Reason: Mild or moderate pain Last Admin: 12/04/22 17:33 Dose: 5 mg Documented By: CG Vital Signs Vital signs: Vital Signs - 8 hr 12/04/22 11:44 12/04/22 14:15 12/04/22 14:15 Temperature 98.7 F Pulse Rate 85 106 H Respiratory Rate 18 Blood Pressure 124/71 130/76 Pulse Oximetry 99 95 Oxygen Delivery Method Room Air Room Air MDM - OB/Uterine Contractions Lab Data 12/04/22 12:08 12/04/22 12:08 Labs: Lab Results 12/04/22 12/04/22 12/04/22 Range/Units 11:42 11:42 12:08 WBC 9.6 (4.5-11.0) X10^3/uL RBC 4.06 (4.0-5.2) X10^6/uL Hgb 12.4 (12.0-16.0) g/dL Hct 36.5 (36-46) % MCV 89.9 (80-100) fL MCH 30.5 (26-34) PG MCHC 33.9 (30-36) % RDW 13.4 (11.6-14.8) % Plt Count 424 H (150-400) X10^3/uL Neut % (Auto) 73.5 (50-75) % Lymph % (Auto) 16.9 L (25-40) % [place] % (Auto) 7.4 (3-14) % Eos % (Auto) 1.8 L (2-4) % Baso % (Auto) 0.4 (0-2) % Neut # (Auto) 7100 H (5594-6607) /uL Lymph # (Auto) 1600 (4248-1943) /uL [place] # (Auto) 700 (0-900) /uL Eos # (Auto) 200 (0-450) /uL Baso # (Auto) 0 (0-100) /uL Sodium (137-145) mmol/L Potassium (3.4-5.1) mmol/L Chloride (98-107) mmol/L Carbon Dioxide (22-32) mmol/L BUN (7-17) mg/dL Creatinine (0.52-1.04) mg/dL Estimated GFR (>60) mL/min BUN/Creatinine Ratio (6-22) Glucose (70-100) mg/dL Calcium (8.4-10.2) mg/dL Total Bilirubin (0.2-1.3) mg/dL AST (14-36) IU/L ALT (<35) IU/L Alkaline Phosphatase (38-126) U/L Total Protein (6.3-8.2) g/dL Albumin (3.5-5.0) g/dL Globulin (1.7-4.1) g/dL Albumin/Globulin Ratio (1.0-2.8) HCG, Quant mIU/mL Urine Color Yellow Urine Appearance Clear Urine pH 7.0 (4.5-8.0) Ur Specific [place] 1.010 (1.000-1.035) Urine Protein Negative (Negative) Urine Glucose (UA) Negative (Negative) g/dL Urine Ketones Negative (NEGATIVE) Urine Occult Blood 2+ H (Negative) Urine Nitrate Negative (Negative) Urine Bilirubin Negative (NEGATIVE) Urine Urobilinogen 0.2 (0.2) E.U./dL Ur Leukocyte Esterase Negative (NEGATIVE) Urine RBC 0-1/hpf (0-5/HPF) Urine WBC None seen (0-5/HPF) Ur Squamous Epith Cells 5-10 /hpf H (0-5/HPF) Urine Bacteria None seen (None) Ur Culture Indicated? Cult not indicated Urine Test Positive H (Negative) Blood Type 12/04/22 12/04/22 12/04/22 Range/Units 12:08 12:08 12:08 WBC (4.5-11.0) X10^3/uL RBC (4.0-5.2) X10^6/uL Hgb (12.0-16.0) g/dL Hct (36-46) % MCV (80-100) fL MCH (26-34) PG MCHC (30-36) % RDW (11.6-14.8) % Plt Count (150-400) X10^3/uL Neut % (Auto) (50-75) % Lymph % (Auto) (25-40) % [place] % (Auto) (3-14) % Eos % (Auto) (2-4) % Baso % (Auto) (0-2) % Neut # (Auto) (7031-6286) /uL Lymph # (Auto) (3801-2249) /uL [place] # (Auto) (0-900) /uL Eos # (Auto) (0-450) /uL Baso # (Auto) (0-100) /uL Sodium 136 L (137-145) mmol/L Potassium 3.7 (3.4-5.1) mmol/L Chloride 104 (98-107) mmol/L Carbon Dioxide 27 (22-32) mmol/L BUN 6 L (7-17) mg/dL Creatinine 0.46 L (0.52-1.04) mg/dL Estimated GFR > 60 (>60) mL/min BUN/Creatinine Ratio 13.0 (6-22) Glucose 89 (70-100) mg/dL Calcium 8.7 (8.4-10.2) mg/dL Total Bilirubin 0.6 (0.2-1.3) mg/dL AST 18 (14-36) IU/L ALT 14 (<35) IU/L Alkaline Phosphatase 74 (38-126) U/L Total Protein 6.8 (6.3-8.2) g/dL Albumin 3.9 (3.5-5.0) g/dL Globulin 2.9 (1.7-4.1) g/dL Albumin/Globulin Ratio 1.3 (1.0-2.8) HCG, Quant 3729.2 mIU/mL Urine Color Urine Appearance Urine pH (4.5-8.0) Ur Specific [place] (1.000-1.035) Urine Protein (Negative) Urine Glucose (UA) (Negative) g/dL Urine Ketones (NEGATIVE) Urine Occult Blood (Negative) Urine Nitrate (Negative) Urine Bilirubin (NEGATIVE) Urine Urobilinogen (0.2) E.U./dL Ur Leukocyte Esterase (NEGATIVE) Urine RBC (0-5/HPF) Urine WBC (0-5/HPF) Ur Squamous Epith Cells (0-5/HPF) Urine Bacteria (None) Ur Culture Indicated? Urine Test (Negative) Blood Type O Positive Imaging Data US: Radiologist's Impression: Ann Nieves??22??F??2000 ? Allergy/Adv: amitriptyline Close Ultrasound (Signed) Ryan Jones - 12/04/22 Pelvis Ultrasound (Signed) Ursula Pritchard - 06/23/22 Chest X-Ray (Signed) Mando Giraldo - 03/09/21 Hand X-Ray (Signed) Call,Baltazar - 03/01/19 Hand X-Ray (Signed) Call,Baltazar - 03/01/19 Launch?[address] [address] Ultrasound Report Signed Patient: Ann Nieves MR#: [id number] : 2000 Acct:[id number] Age/Sex: 22 / F Date of Service: 12/04/22 Loc: ED Accession Number: [id number] ?? Procedure: US OB <= 14 weeks fetus Ordering Provider: Daphnie Ramirez D.O. PROCEDURE:? US OB <= 14 WEEKS FETUS ? INDICATIONS:? PAIN, BLEEDING ? OUTSIDE/PRIOR DATING DATA:? Last menstrual period (LMP):? October 21, 2022.? LMP-based estimated date of delivery (MARY):? July 28, 2023.? First dating scan (date and location):? December 04, 2022.? Estimated date of delivery (MARY) from first dating scan:? July 31, 2023. ? TECHNIQUE:? Real-time scanning was performed of the fetus and maternal pelvic organs, with image documentation.? Endovaginal scanning was also performed to better visualize the fetus and maternal ovaries.? ? COMPARISON:? None. ? FINDINGS:? ? Embryo:? Single intrauterine gestation identified low within the endometrial cavity.? By crown-rump length measurement, this measures approximately 5 weeks and 6 days and estimated gestational age.? There is a perigestational hemorrhage measuring 1.1 x 0.5 x 0.5 cm. Heart rate:? No cardiac activity identified. ? Maternal organs:? Ovaries demonstrate a 4.2 x 2.3 x 2.7 cm complex mass within the left ovary with minimal internal vascularity.? No pathologic pelvic free fluid. ? ? ? IMPRESSION:? Single intrauterine gestation with estimated sonographic gestational age of approximately 5 weeks and 6 days based off crown-rump length measurement.? There is no detectable cardiac activity.? There is also an associated perigestational hemorrhage and low implantation of the gestational sac.? Findings may represent questionable spontaneous in progress.? Recommend continued clinical surveillance and short interval follow-up imaging as needed. ? Nonspecific complex left ovarian/adnexal cyst measuring up to 4.2 cm in size.? This may represent a corpus luteal cyst.? Attention will be made on subsequent imaging. ? We strive to produce accurate, complete, and clear reports of imaging services. To assist us in improving patient care, this report was composed using standard report templates and voice recognition software. Therefore, it may contain abnormal punctuation, insertions and/or omissions. Occasional wrong-word or sound-alike substitutions may occur. Though we review the report and make efforts to correct it, we do recommend that the report be read carefully in proper context to recognize any text inaccuracies. ? Dictated by: Ryan Jones M.D. on 12/04/2022 at 12:15 ? ? Approved by: Ryan Jones M.D. on 12/04/2022 at 12:20?? MDM Narrative Medical decision making narrative: Case discussed with Dr. Osuna patient has positive test hCG of 3700, intrauterine 5 weeks and 6 days with a perigestational hemorrhage and no cardiac activity there is a complex miss that is 4.2 x 2.3 x 2.7 cm. Patient was slightly tachycardic but otherwise hemodynamically stable. Labs do not show other major changes she is Rh positive not requiring RhoGAM. Discussed with Dr. Osuna with OBGYN who will come in and see the patient and discuss o ptions. Patient is still little bit uncomfortable she is had Tylenol and ibuprofen earlier in the day we will give a dose of [place] here in the department. Dr. Osuna met with patient in department and she elects to pursue I&D plan for OR today. NPO, patient started on gentle hydration. Discharge Plan Departure Patient Disposition: Admitted to Surgery Clinical Impression: Incomplete miscarriage, Complex cyst of left ovary Admit Date/Time: 12/04/22 15:16 Admit Provider: Ashwini Osuna
[2022-12-04] MEDS: HYDROCODONE/ACET 5/325 TABLET 1 TAB PO (14:51)
--- NOTE | 2022-12-04 15:28 | P.HPOB_ITS ---
History of Present Illness History of Present Illness Reason for admission: incomplete Narrative: Ann Nieves is a 22 year old female presenting to the emergency room complaining of vaginal bleeding since November 20 found to have incomplete miscarriage measuring 5 weeks 6 days with no heartbeat. [facility] Medical History Acetaminophen overdose Asthma exacerbation Rectal bleeding Social History Smoking Status: Never smoker Meds Home Medications and Allergies Home Medications Medication Instructions Recorded Confirmed Type ondansetron 4 mg disintegrating 4 mg PO TID-QID PRN nausea and 03/01/19 Rx tablet vomiting #10 tabs cephalexin 500 mg capsule 500 mg PO TID #21 caps 08/01/20 Rx benzonatate 200 mg capsule 200 mg PO BID PRN cough #20 caps 04/12/22 Rx ondansetron 4 mg disintegrating 4 mg PO TID-QID PRN nausea and 04/12/22 Rx tablet vomiting #10 tabs Allergies Allergy/AdvReac Type Severity Reaction Status Date / Time amitriptyline Allergy Severe Rash Verified 02/02/21 18:29 Review of Systems Review of Systems Narrative: Patient has some mild dizziness. Mild lower abdominal pain. No fevers or chills. Vaginal bleeding Exam Vital Signs (past 8 hours): - 12/04/22 11:44 12/04/22 14:15 12/04/22 14:15 Temperature 98.7 F Pulse Rate 85 106 H Respiratory Rate 18 Blood Pressure 124/71 130/76 Pulse Oximetry 99 95 Oxygen Delivery Method Room Air Room Air Oxygen Delivery Method Room Air Narrative Exam Narrative: HEENT exam within normal limits. Lungs are clear to auscultation percussion. Heart is regular rate and rhythm no S3-S4 murmurs. Abdomen is soft, with minimal lower abdominal tenderness without rebound. Pelvic exam not performed. Extremities without edema and nontender. Objective Imaging US - abdomen: Radiologist's impression: PROCEDURE:? US OB <= 14 WEEKS FETUS ? INDICATIONS:? PAIN, BLEEDING ? OUTSIDE/PRIOR DATING DATA:? Last menstrual period (LMP):? October 21, 2022.? LMP-based estimated date of delivery (MARY):? July 28, 2023.? First dating scan (date and location):? December 04, 2022.? Estimated date of delivery (MARY) from first dating scan:? July 31, 2023. ? TECHNIQUE:? Real-time scanning was performed of the fetus and maternal pelvic organs, with image documentation.? Endovaginal scanning was also performed to better visualize the fetus and maternal ovaries.? ? COMPARISON:? None. ? FINDINGS:? ? Embryo:? Single intrauterine gestation identified low within the endometrial cavity.? By crown-rump length measurement, this measures approximately 5 weeks and 6 days and estimated gestational age.? There is a perigestational hemorrhage measuring 1.1 x 0.5 x 0.5 cm. Heart rate:? No cardiac activity identified. ? Maternal organs:? Ovaries demonstrate a 4.2 x 2.3 x 2.7 cm complex mass within the left ovary with minimal internal vascularity.? No pathologic pelvic free fluid. ? ? ? IMPRESSION:? Single intrauterine gestation with estimated sonographic gestational age of approximately 5 weeks and 6 days based off crown-rump length measurement.? There is no detectable cardiac activity.? There is also an associated perigestational hemorrhage and low implantation of the gestational sac.? Findings may represent questionable spontaneous in progress.? Recommend continued clinical surveillance and short interval follow-up imaging as needed. ? Nonspecific complex left ovarian/adnexal cyst measuring up to 4.2 cm in size.? This may represent a corpus luteal cyst.? Attention will be made on subsequent imaging. ? Labs 12/04/22 12:08 12/04/22 12:08 Labs: Laboratory Results - last 24 hr 12/04/22 12/04/22 12/04/22 11:42 11:42 12:08 WBC 9.6 RBC 4.06 Hgb 12.4 Hct 36.5 MCV 89.9 MCH 30.5 MCHC 33.9 RDW 13.4 Plt Count 424 H Neut % (Auto) 73.5 Lymph % (Auto) 16.9 L [place] % (Auto) 7.4 Eos % (Auto) 1.8 L Baso % (Auto) 0.4 Neut # (Auto) 7100 H Lymph # (Auto) 1600 [place] # (Auto) 700 Eos # (Auto) 200 Baso # (Auto) 0 Sodium Potassium Chloride Carbon Dioxide BUN Creatinine Estimated GFR BUN/Creatinine Ratio Glucose Calcium Total Bilirubin AST ALT Alkaline Phosphatase Total Protein Albumin Globulin Albumin/Globulin Ratio HCG, Quant Urine Color Yellow Urine Appearance Clear Urine pH 7.0 Ur Specific [place] 1.010 Urine Protein Negative Urine Glucose (UA) Negative Urine Ketones Negative Urine Occult Blood 2+ H Urine Nitrate Negative Urine Bilirubin Negative Urine Urobilinogen 0.2 Ur Leukocyte Esterase Negative Urine RBC 0-1/hpf Urine WBC None seen Ur Squamous Epith Cells 5-10 /hpf H Urine Bacteria None seen Ur Culture Indicated? Cult not indicated Urine Test Positive H Blood Type 12/04/22 12/04/22 12/04/22 12:08 12:08 12:08 WBC RBC Hgb Hct MCV MCH MCHC RDW Plt Count Neut % (Auto) Lymph % (Auto) [place] % (Auto) Eos % (Auto) Baso % (Auto) Neut # (Auto) Lymph # (Auto) [place] # (Auto) Eos # (Auto) Baso # (Auto) Sodium 136 L Potassium 3.7 Chloride 104 Carbon Dioxide 27 BUN 6 L Creatinine 0.46 L Estimated GFR > 60 BUN/Creatinine Ratio 13.0 Glucose 89 Calcium 8.7 Total Bilirubin 0.6 AST 18 ALT 14 Alkaline Phosphatase 74 Total Protein 6.8 Albumin 3.9 Globulin 2.9 Albumin/Globulin Ratio 1.3 HCG, Quant 3729.2 Urine Color Urine Appearance Urine pH Ur Specific [place] Urine Protein Urine Glucose (UA) Urine Ketones Urine Occult Blood Urine Nitrate Urine Bilirubin Urine Urobilinogen Ur Leukocyte Esterase Urine RBC Urine WBC Ur Squamous Epith Cells Urine Bacteria Ur Culture Indicated? Urine Test Blood Type O Positive Assessment & Plan Assessment & Plan narrative: 5 week incomplete A/B. Patient was given options for treatment including waiting for spontaneous miscarriage, using medication to try to encourage miscarriage at home versus suction D&C. Patient requests suction D&C. Consent form was reviewed with the patient. Minimal risk of reaction to medication or anesthesia, infection, bleeding, perforation the uterus that could damage to internal structures such as bowel, bladder, ureters that could require additio nal surgery, scar tissue inside the uterus that may decrease the chance of . Consent form signed and questions answered. Suction D&C Time Spent With Patient Time with patient: less than 30 minutes
--- NOTE | 2022-12-04 15:28 | PM.PREOP ---
Pre-operative Note COVID-19 Criteria for continued procedure: Possibility delay results in more complex future surgery or treatment Interval Note History & Physical reviewed/Exam performed by Physician: Yes Changes to H&P: No
[2022-12-04] MEDS: SODIUM CHLORIDE 0.9% 1,000 ML 100 ML IV (15:54)
[2022-12-04] MEDS: LACTATED RINGERS 1,000 ML 42 ML IV (16:42)
--- NOTE | 2022-12-04 17:14 | PM.OP.1 ---
Operative Date/Time/Diagnoses Date of procedure: 12/04/22 Time of procedure: 17:15 Pre-op diagnosis: Incomplete miscarriage of 5 week 6 day nonviable fetus Post-op diagnosis: same Procedure & Clinicians Procedure: Suction D&C Same procedure as scheduled: Yes Indications: Bleeding, no heartbeat seen in 5 week 6 day fetus with HCG level of 3000 Surgeon: Ashwini Osuna Click Yes if Unassisted: Yes Anesthesia Type: General Operative Notes Findings: Normal exam under anesthesia. Moderate amount of retained products of conception Closure Type: not applicable Specimen(s): other (Uterine contents) Estimated Blood Loss (mL): 30 Procedure in detail: Patient was brought to the operating room where she was placed in supine position underwent general anesthesia. She was placed in low Yell[place]in stirrups and prepped and draped in usual sterile fashion. A check system was reviewed with the staff in room prior to beginning the case. Warming was with blankets. Pulsatile stockings in place and functional. Antibiotics not indicated. A speculum was placed in the vagina and a single-tooth tenaculum placed on the anterior lip of the cervix. The cervix was found to already be dilated to a #8 Hegar dilator. A#7 suction curette was placed in the in uterus and tissue removed. A sharp curette was used followed by the 2nd curette to remove the remainder of the tissue. The patient went to recovery room in stable condition. Counts of instruments and sponges were correct. Complications: none Post-operative Condition: stable Disposition: same day surgery Plan for aftercare: Home when awake and stable. Follow-up in 2 weeks.
[2022-12-04] MEDS: ONDANSETRON 4 MG/2 ML INJ IV (17:33)
[2022-12-04] MEDS: OXYCODONE IR 5 MG TABLET PO (17:33)
== END 2022-12-04 17:55 | disposition home or self-care (01) ==
LOC: ED 15:09 → AC 15:32 → OR 12-06 09:11
PROVIDERS: Emergency Provider Emergency Medicine; PCP Physician Assistant; Referring Provider Emergency Medicine; Visit Provider Specialist
PROC: (CPT 58120; principal; 2022-12-04 16:15)
DX: O03.4 Incomplete spontaneous abortion without complication (principal); J45.909 Unspecified asthma, uncomplicated
CPT/HCPCS: 59812; 36415; 76801; 76817; 80053; 81001; 81025; 84702; 85025; 86900; 86901; 93975; 96374; 99221; 99284; G0378; J1100; J1885; J2250; J2405; J2704; J3010

== ENCOUNTER 2023-02-21 17:30 | Emergency (ER) | payer MEDICAID, SELFPAY ==
[2023-02-21 17:32] VITALS: BP 130/81; PULSE 82; RESP 16; TEMP 36.7; O2SAT 99; BMI 21.9
--- NOTE | 2023-02-21 17:38 | DI.RAD.S_ITS ---
PROCEDURE: XR HAND RT MIN 3V INDICATIONS: Pt. hit bedframe with hand and has bruising. TECHNIQUE: 3 views of the hand(s) acquired. COMPARISON: [facility], CR, XR HAND LT MIN 3V, 03/01/2019, 5:09. FINDINGS: Bones: No fractures or dislocations. Carpal bones are normally aligned. No suspicious bony lesions. Soft tissues: No suspicious soft tissue calcifications. IMPRESSION: No acute fracture. No osseous lesion. If symptoms and/or clinical suspicion for pathology persist, further assessment with repeat, or advanced imaging (e.g., CT, MRI, or bone scan) may be helpful for further assessment. Dictated by: iMck Rosa M.D. on 02/21/2023 at 18:17 Approved by: Mick Rosa M.D. on 02/21/2023 at 18:17
--- NOTE | 2023-02-21 19:17 | ED_ITS ---
HPI - Extremity Injury (Upper) General Chief Complaint: Extremity Injury, Upper Stated Complaint: Hand inj Time Seen by Provider: 02/21/23 18:51 Source: patient Mode of arrival: Ambulatory History of Present Illness HPI narrative: Patient is a 22-year-old female who presents with right hand pain and injury. Reports that she was very angry hit her head board with hand and forearm. She is contusion along forearm and is complaining of metacarpal pain. No numbness tingling or weakness. She is been icing it pain seems to be better. Related Data Home Medications Medication Instructions Recorded Confirmed No Known Home Medications 02/21/23 02/21/23 Allergies Allergy/AdvReac Type Severity Reaction Status Date / Time amitriptyline Allergy Severe Rash Verified 02/21/23 17:38 Review of Systems Review of Systems ROS Unobtainable: All systems reviewed & are unremarkable except as noted in HPI and below Patient History Medical History Acetaminophen overdose Asthma exacerbation Rectal bleeding Social History household members: family Smoking Status: Never smoker Smoking Status: Never smoker alcohol intake frequency: holidays/special occasions only Substance Use Type: marijuana Exam Initial Vital Signs Initial Vital Signs: Vital Signs Temperature 98.1 F 02/21/23 17:32 Pulse Rate 82 02/21/23 17:32 Respiratory Rate 16 02/21/23 17:32 Blood Pressure 130/81 02/21/23 17:32 Pulse Oximetry 99 02/21/23 17:32 Oxygen Delivery Method Room Air 02/21/23 17:32 GENERAL: Well-appearing, well-nourished and in no acute distress. CARDIOVASCULAR: peripheral pulses in tact, cap refill <2 sec RESPIRATORY: No respiratory distress, speaks in full sentences without difficulty EXTREMITIES: Normal range of motion, no clubbing or edema. Neurovascularly intact Right upper extremity: She does have contusion over forearm and pain over 5th metacarpal without gross bony deformity. Neurovascularly intact distal radial pulse intact NEUROLOGICAL: Cranial nerves II through XII grossly intact. Normal gait and speech. SKIN: Warm, dry, no petechiae, no rashes or lesions. Course Orders Ordered: ED Orders 02/21/23 17:38 XR hand RT min 3V Stat Vital Signs Vital signs: Vital Signs - 8 hr 02/21/23 17:32 02/21/23 19:33 Temperature 98.1 F 98.1 F Pulse Rate 82 Respiratory Rate 16 18 Blood Pressure 130/81 111/67 Pulse Oximetry 99 97 Oxygen Delivery Method Room Air Room Air MDM - Extremity Injury (Upper) Lab Data Labs: Point of Care Testing Test Results Negative Urine Dip Bedside Urine Glucose Negative Bedside Urine Bilirubin - Negative Bedside Urine Ketone - Negative Urine Specific [place] 1.010 Bedside Urine Occult Blood - Negative Bedside Urine pH 7.5 Bedside Urine Protein +/- 15 Bedside Urine Urobilinogen - Negative Bedside Urine Nitrite - Negative Bedside Urine Leukocytes +/- 15 Esterase Imaging Data Extremity x-ray #1: Radiologist's Impression: PROCEDURE:? XR HAND RT MIN 3V ? INDICATIONS:? Pt. hit bedframe with hand and has bruising. ? TECHNIQUE:? 3 views of the hand(s) acquired.? ? COMPARISON:? [facility], [facility], XR HAND LT MIN 3V, 03/01/2019, 5:09. ? FINDINGS:? ? Bones:? No fractures or dislocations.? Carpal bones are normally aligned.? No suspicious bony lesions.? ? Soft tissues:? No suspicious soft tissue calcifications.? ? ? IMPRESSION:? No acute fracture. No osseous lesion. If symptoms and/or clinical suspicion for pathology persist, further assessment with repeat, or advanced imaging (e.g., CT, MRI, or bone scan) may be helpful for further assessment. ? ? Dictated by: Mick Rosa M.D. on 02/21/2023 at 18:17 ? ? Approved by: Mick Rosa M.D. on 02/21/2023 at 18:17 ? [facility] Narrative Medical decision making narrative: Patient 22-year-old female who presents with right hand pain and injury after she hit headboard. Reports that she was angry. Reports that she feels safe at home. X-ray is negative no fracture. Supportive care only. Discharge Plan Departure Patient Disposition: Home Clinical Impression: Contusion of hand, right Instructions: Contusion Activity Restrictions/Additional Instructions: *You have been diagnosed with right hand contusion *What to do: Elevate and ice. Supportive care only. *Continue to take medications as directed Motrin 600 mg every 6 hours if needed for [id number]-lihtbilt pain Tylenol 1000 mg every 6 hours if needed for [id number] pain *Follow up with your primary care provider in 2-3 days or call [phone] *Return to ER if you should have fever weakness swelling or any new, worsening or concerning symptoms Prescriptions: No Action No Known Home Medications Referrals: Ирина Pickering PA-C [Primary Care Provider] - Stand Alone Forms: Patient Portal/API
[2023-02-21 19:33] VITALS: BP 111/67; RESP 18; TEMP 36.7; O2SAT 97
== END 2023-02-21 19:32 | disposition home or self-care (01) ==
PROVIDERS: Emergency Provider Emergency Medicine; PCP Physician Assistant
DX: S60.221A Contusion of right hand, initial encounter (principal); W22.8XXA Striking against or struck by other objects, initial encounter
CPT/HCPCS: 73130; 81003; 81025; 99282; 99283